=== PATIENT | female | born 1960 | race American Indian/Alaskan Native ===

== ENCOUNTER 2018-09-03 09:15 | Outpatient (CLI) | payer MEDICAID ==
--- NOTE | 2018-09-03 11:13 | Mammography Report ---
BILATERAL MAMMOGRAM: FINDINGS: The breasts are almost entirely fat (<25% glandular). No mass, distortion, suspicious calcification, or skin change is seen. There is no significant change when compared to prior exam in April 2017. CAD was utilized. IMPRESSION: Negative mammogram. There is no mammographic evidence of malignancy. RECOMMENDATION: Follow-up per ACS guidelines. BI-RADS CATEGORY: 1 = Negative ACR BI-RADS MAMMOGRAPHIC CODES: 0 = Needs additional imaging evaluation; 1 = Negative; 2 = Benign; 3 = Probably benign; 4 = Suspicious; 5 = Malignant; 6 = Known biopsy-proven malignancy COMMENT: 1. Dense breast tissue, i.e., adenosis, fibrocystic changes, etc., may obscure an underlying neoplasm. 2. Approximately 10% of cancers are not detected with mammography. 3. A negative mammography report should not delay biopsy if a clinically suspicious mass is present. COMMENT: Patient follow-up letters are generated in [employer] [place].
--- NOTE | 2018-09-03 11:18 | Ultrasound Report ---
Pelvic ultrasound: Right lower quadrant pain. Postmenopausal. Endovaginal and transabdominal imaging demonstrates an anteverted uterus measuring 4.2 x 5.6 x 10.1 cm. The myometrium is homogeneous. The endometrium as measured on the endovaginal images has a thickness of 11.3 mm. No endometrial fluid identified. No increased flow pattern on color imaging. Neither ovary is optimally visualized but both appear to be identified. Each ovary measures approximately 2.6 cm in greatest dimension. No ovarian masses identified and no para ovarian fluid nor mass noted. Impression: Abnormally thick endometrium for postmenopausal status.
== END 2018-09-03 09:16 | disposition home or self-care (01) ==
LOC: SPVWC 09:15
PROVIDERS: ATTEND Hospitalist
DX: Z12.31 Encounter for screening mammogram for malignant neoplasm of breast (principal); Z78.0 Asymptomatic menopausal state
CPT/HCPCS: 76830; 76856; 77067